=== PATIENT | female | born 1955 | race Caucasian/White ===

== ENCOUNTER 2016-10-04 09:44 | Emergency (ER) | payer OTHER ==
[2016-10-04 11:06] LABS: ABSOLUTE NEUTROPHIL COUNT 3.2 K/mm3 (1.8-7.7); BASO # 0.1 K/mm3 (0.0-0.2); BASO % 0.8 % (0.2-1.0); EOS # 0.2 (0.0-0.5); EOS % 2.5 % (0.9-2.9); HEMATOCRIT 41.6 % (37.0-47.0); HEMOGLOBIN 13.9 gm/l (12.0-16.0); IMM NEUT% 0.1 % (0-1); LYMPH # 4.7 (1.0-4.8); LYMPH % 52.9 % (15-45); MEAN CELL VOLUME 94.5 fl (81.0-99.0); MEAN CORPUSCULAR HEMOGLOBIN 31.6 pg (27.0-31.0); MEAN CORPUSCULAR HGB CONC 33.4 g/dl (33.0-37.0); MEAN PLATELET VOLUME 10.1 fl (7.4-10.4); MONO # 0.6 (0.0-0.8); MONO % 7.2 % (4-12); NEUT % 36.5 % (43-75); PLATELET COUNT 345 K/mm3 (130-400); RED CELL DISTRIBUTION WIDTH 12.7 % (11.5-14.5)
--- NOTE | 2016-10-04 11:29 | CT ---
HEAD W/O CON: 10/04/2016 10:47 AM CLINICAL HISTORY: Headache and right-sided pain.. COMPARISON: 10/27/2012 TECHNIQUE: Contiguous axial 5 mm images from skull base to the vertex were obtained without IV contrast. Sagittal and coronal reformations with bone algorithm images were also obtained at this time. CT DI:: 51.7 DLP: 964.8 FINDINGS: Infarct: None Extra axial spaces: Normal in size and morphology for the patient's age. Hemorrhage: None. Ventricular system: Normal in size and morphology for the patient's age. Basal cisterns: Normal. Cerebral parenchyma: Normal. Midline shift: None. Cerebellum: Normal. Brainstem: Normal. OTHER: Calvarium: Normal. Vascular system: Increasing calcifications involving the vertebral arteries bilaterally. Otherwise unremarkable. Visualized Paranasal sinuses and Mastoid air cells: Clear. Visualized Orbits and regional soft tissues: Normal. IMPRESSION: No acute intracranial process. Report was uploaded to the electronic medical record at approximately 1124 hours on 10/04/2016
[2016-10-04 11:44] LABS: ALB/GLOB RATIO 1.3 (>1.0); CALCIUM 9.8 mg/dL (8.6-10.3)
== END 2016-10-04 12:08 | disposition home or self-care (01) ==
LOC: ED 09:44
DX: R51 Headache (principal); E11.9 Type 2 diabetes mellitus without complications; Z79.4 Long term (current) use of insulin